=== PATIENT | female | born 1975 | race Caucasian/White ===

== ENCOUNTER 2016-09-10 17:36 | Emergency (ER) | payer MEDICARE ==
[2016-09-10 17:59] VITALS: O2SAT 100
--- NOTE | 2016-09-10 18:15 | ERPHSYRPT ---
- History of Present Illness Time Seen by Provider: 09/10/16 18:05 Source: patient Exam Limitations: no limitations Patient Subjective Stated Complaint: PT LOWER BACK PAIN THAT RADIATES DOWN LEFT LEG FOR LAST COUPLE DAYS, HAS BEEN LIFTING HEAVY OBJECTS, SHE STATES SHE HAS HX OF BACK PROBLEMS Triage Nursing Assessment: PT ALERT,CRYING, SKIN W/D RESP EASY, WALKED IN [facility] BACK. IS INCONT OF SMALL AMT OF URINE WHICH IS NEW THE LAST COUPLE HOURS, Physician History: The patient is a 40-year-old female with a history of chronic back problems with surgeries for a bulging disc complaining of low back pain on the left side with radiation down her left leg with movement since lifting an object last night. When she lifted the object, she had sharp pain in her back that caused her to urinate slightly. Today she has tried her medications for back pain that include ties and again, and Percocet. When she moves and has severe back pain she does urinate a little. She is able to urinate on her own when her back is hurting her. She has not had a bowel movement today. She has no numbness or tingling in her lower extremities. Timing/Duration: yesterday Method of Injury: bending, lifting Quality: aching Back Pain Location: lumbar spine, paraspinous muscles Back Pain Radiation: lower legs (left) Severity of Pain-Max: severe Severity of Pain-Current: severe Modifying Factors: Improves With: cold therapy, pain medication Associated Symptoms: problems urinating (pt states she urinates when she moves and the back pain is severe.), lower back pain, muscle spasms, No loss of bowel control, No numbness in legs/feet Previous symptoms: same symptoms as today Allergies/Adverse Reactions: ibuprofen [From Advil] Allergy (Verified 09/10/16 18:02) sulfamethoxazole [From Bactrim] Allergy (Verified 09/10/16 18:02) trimethoprim [From Bactrim] Allergy (Verified 09/10/16 18:02) Home Medications: Diazepam [Valium] 10 mg BID 09/10/16 [History] Hydrocodone Bit/Acetaminophen [[place] 5-325 Tablet] 1 ea QID 09/10/16 [History] Morphine Sulfate Cr 30 mg [Ms Contin 30 mg] 30 mg TID 09/10/16 [History] Tizanidine HCl 4 mg [Zanaflex 4 MG] 4 mg TID 09/10/16 [History] Topiramate 100 mg [Topamax 100 MG] 50 mg BID 09/10/16 [History] Hx Influenza Vaccination/Date Given: No Hx Pneumococcal Vaccination/Date Given: No Immunizations Up to Date: Yes - Review of Systems Constitutional: No Fever, No Chills Eyes: No Symptoms Ears, Nose, & Throat: No Symptoms Respiratory: No Cough, No Dyspnea Cardiac: No Chest Pain, No Edema, No Syncope Abdominal/Gastrointestinal: No Abdominal Pain, No Nausea, No Vomiting, No Diarrhea Genitourinary Symptoms: Incontinence Musculoskeletal: Back Pain, No Neck Pain Skin: No Rash Neurological: No Dizziness, No Focal Weakness, No Sensory Changes Psychological: No Symptoms Endocrine: No Symptoms Hematologic/Lymphatic: No Symptoms Immunological/Allergic: No Symptoms All Other Systems: Reviewed and Negative - Past Medical History Pertinent Past Medical History: Yes Neurological History: Seizures Other Medical History: CHRONIC BACK PAIN - Past Surgical History Past Surgical History: Yes Neuro Surgical History: Other Musculoskeletal: Orthopedic Surgery Female Surgical History: Hysterectomy, Section Other Surgical History: BACK ,BOTTLE ROCKET THROUGH LEFT EYE, EYE SURG,ARN,HAND - Social History Smoking Status: Current every day smoker Exposure to second hand smoke: Yes Drug Use: none Patient Lives Alone: No - Female History Hx Last Menstrual Period: HYSTER - Nursing Vital Signs Temperature: 97.2 F Temperature Source: Oral Pulse Rate: 82 Respiratory Rate: 16 Pain Intensity: 10 - Physical Exam General Appearance: moderate distress Eye Exam: PERRL/EOMI, eyes nml inspection Ears, Nose, Throat Exam: normal ENT inspection Neck Exam: normal inspection, non-tender, supple, full range of motion, No meningismus, No midline tenderness Respiratory Exam: normal breath sounds, lungs clear, No respiratory distress Cardiovascular Exam: regular rate/rhythm, normal heart sounds Gastrointestinal Exam: soft Pelvic Exam: not done Rectal Exam: normal exam, normal rectal tone, No decreased tone Back Exam: muscle spasm (left paraspinous) Extremity Exam: normal inspection, normal range of motion, No calf tenderness, No pedal edema Neurologic Exam: alert, oriented x 3, cooperative, stopper maker II-XII nml as tested, normal mood/affect, nml station & gait, sensation nml, No motor deficits Skin Exam: normal color, warm, dry, No rash SpO2 Interpretation: normal SpO2: 100 Oxygen Delivery: Room Air - Progress Progress: pain not gone completely Counseled pt/family regarding: diagnosis, need for follow-up - Departure Time of Disposition: 18:31 Departure Disposition: Home Clinical Impression: Sciatica Condition: Good Critical Care Time: No Additional Instructions: You have back pain with sciatica. You were given an injection of decadron 10 mg IM. Continue to take your home meds as directed that include narcotic pain meds and tizanidine. Follow up tomorrow with you PMD if your condition has not improved.
[2016-09-10] MEDS ORDERED: DECADRON 10MG INJ. IM ONE (18:27)
[2016-09-10] MEDS ORDERED: DECADRON 10MG INJ. ONE (18:33)
[2016-09-10 18:58] VITALS: BP 128/70; PULSE 72
== END 2016-09-10 18:57 | disposition home or self-care (01) ==
LOC: ED 17:36
DX: M54.32 Sciatica, left side (principal); X50.0XXA Overexertion from strenuous movement or load, initial encounter; M54.5 Low back pain; M79.662 Pain in left lower leg
CPT/HCPCS: 96372; 99284; J1100

== ENCOUNTER 2017-01-01 14:43 | Emergency (ER) | payer MEDICARE ==
--- NOTE | 2017-01-01 15:06 | ERPHSYRPT ---
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 She was stung on right foot yesterday by a honey bee. It is swollen, itching, red. Painful. She had a prior sore on the ankle which has been draining green pus. No fever. Tetanus up to date. Not . She can not take septra or NSAIDS. Occurred: yesterday Lower Extremities Pain: foot: left Allergies/Adverse Reactions: ibuprofen [From Advil] Allergy (Verified 09/10/16 18:02) sulfamethoxazole [From Bactrim] Allergy (Verified 09/10/16 18:02) trimethoprim [From Bactrim] Allergy (Verified 09/10/16 18:02) Home Medications: Diazepam [Valium] 10 mg BID 09/10/16 [History] Hydrocodone Bit/Acetaminophen [[place] 5-325 Tablet] 1 ea QID 09/10/16 [History] Morphine Sulfate Cr 30 mg [Ms Contin 30 mg] 30 mg TID 09/10/16 [History] Tizanidine HCl 4 mg [Zanaflex 4 MG] 4 mg TID 09/10/16 [History] Topiramate 100 mg [Topamax 100 MG] 50 mg BID 09/10/16 [History] Hx Influenza Vaccination/Date Given: No Hx Pneumococcal Vaccination/Date Given: No - Review of Systems Constitutional: No Fever, No Chills Respiratory: No Dyspnea, No Wheezing Abdominal/Gastrointestinal: No Nausea, No Vomiting, No Diarrhea Musculoskeletal: Injury (bee sting right foot) Skin: Skin Lesions (sore on left foot/ankle) Neurological: No Focal Weakness, No Parasthesia All Other Systems: Reviewed and Negative - Past Medical History Pertinent Past Medical History: Yes Neurological History: Seizures Other Medical History: CHRONIC BACK PAIN - Past Surgical History Past Surgical History: Yes Neuro Surgical History: Other Musculoskeletal: Orthopedic Surgery Female Surgical History: Hysterectomy, Section Other Surgical History: BACK ,BOTTLE ROCKET THROUGH LEFT EYE, EYE SURG,ARN,HAND - Social History Smoking Status: Current every day smoker Exposure to second hand smoke: Yes Drug Use: none Patient Lives Alone: No - Physical Exam General Appearance: alert Eyes, Ears, Nose, Throat Exam: moist mucous membranes Neck Exam: supple Cardiovascular/Respiratory Exam: regular rate/rhythm Neuro/Tendon Exam: normal sensation, normal motor functions Mental Status Exam: alert, oriented x 3, cooperative Skin Exam: warm, dry Comments: right foot swollen with some redness. There is no bee stinger present. There is a medial proximal sore without drng. Pulses intact. ROM intact. - Course Nursing assessment & vital signs reviewed: Yes - Progress Progress Note: 01/01/17 15:04 She is driving. Has used benadryl at home. Allergic to NSAIDS. This is not anaphylaxis but local reaction to bee. She has a pre-existing sore. Rx keflex for that. Rx atarax instead of benadryl. Continue baking soda compresses. Counseled pt/family regarding: diagnosis, need for follow-up - Departure Time of Disposition: 15:05 Departure Disposition: Home Clinical Impression: bee sting right foot Condition: Stable Critical Care Time: No Referrals: TOMY PARKER [Primary Care Provider] - Instructions: Insect Bites and Stings Additional Instructions: Rx keflex. Rx atarax instead of benadryl. No driving while taking atarax. Elevate foot. Follow up with Dr Parker for any worsening. Prescriptions: Hydroxyzine HCl 1 tab PO Q6H PRN PRN #20 tablet PRN Reason: rash,rest Cephalexin Mh 500 mg [Keflex 500 mg] 1 cap PO QID #40 capsule
[2017-01-01 15:12] VITALS: BP 122/60; PULSE 76; O2SAT 100
== END 2017-01-01 15:22 | disposition home or self-care (01) ==
LOC: ED 14:43
DX: T63.441A Toxic effect of venom of bees, accidental (unintentional), initial encounter (principal)
CPT/HCPCS: 99283

== ENCOUNTER 2017-09-06 13:26 | Emergency (ER) | payer MEDICARE ==
[2017-09-06] MEDS ORDERED: DECADRON 10MG INJ. IM ONE (14:40)
[2017-09-06] MEDS ORDERED: DECADRON 10MG INJ. ONE (14:44)
--- NOTE | 2017-09-06 14:44 | ERPHSYRPT ---
- History of Present Illness Time Seen by Provider: 09/06/17 13:44 Source: patient Patient Subjective Stated Complaint: pt reports productive cough-recent illness- unsure of fever-states that she coughs up clear to white sputum at times-states she just can't kick this cold Triage Nursing Assessment: pt pink warm and [id number] nonlabored-cough noted throughout triage-wheezes noted throughout-pt able to speak in complete sentences Physician History: CC: cough Hx: 41 y/o patient with cough, congestion. Some post tussive emesis last night. No fever or chills. Kids have URI. She is a smoker. Not . Timing/Duration: yesterday (worse) Allergies/Adverse Reactions: ibuprofen [From Advil] Allergy (Verified 09/06/17 13:39) NSAIDS (Non-Steroidal Anti-Inflamma Allergy (Verified 09/06/17 13:39) sulfamethoxazole [From Bactrim] Allergy (Verified 09/06/17 13:39) trimethoprim [From Bactrim] Allergy (Verified 09/06/17 13:39) Home Medications: Topiramate 100 mg [Topamax 100 MG] 50 mg BID 09/10/16 [History] Carisoprodol 350 mg [Soma 350 mg] 350 mg PO TID 01/01/17 [History] Hydrocodone Bit/Acetaminophen [[place] 7.5-325 Tablet] 1 each PO UD 09/06/17 [ History] Hx Tetanus, Diphtheria Vaccination/Date Given: Yes Hx Influenza Vaccination/Date Given: No Hx Pneumococcal Vaccination/Date Given: No Immunizations Up to Date: Yes - Review of Systems Constitutional: Fatigue, Malaise Eyes: No Symptoms Ears, Nose, & Throat: Nose Congestion Respiratory: Cough Cardiac: No Chest Pain Abdominal/Gastrointestinal: Vomiting (post tussive), No Abdominal Pain Skin: No Rash All Other Systems: Reviewed and Negative - Past Medical History Pertinent Past Medical History: Yes Neurological History: Seizures Other Medical History: CHRONIC BACK PAIN - Past Surgical History Past Surgical History: Yes Neuro Surgical History: Other Musculoskeletal: Orthopedic Surgery Female Surgical History: Hysterectomy, Section Other Surgical History: BACK ,BOTTLE ROCKET THROUGH LEFT EYE, EYE SURG,ARN,HAND - Social History Smoking Status: Current every day smoker How long have you smoked: yrs Exposure to second hand smoke: Yes Drug Use: none Patient Lives Alone: No - Female History Hx Last Menstrual Period: hysterectomy Hx Now: No - Nursing Vital Signs Nursing Vital Signs: Initial Vital Signs Respiratory Rate 18 09/06/17 13:41 O2 Sat by Pulse Oximetry 97 09/06/17 13:41 Pain Scale Pain Intensity 6 - Physical Exam General Appearance: alert Eye Exam: PERRL/EOMI Ears, Nose, Throat Exam: moist mucous membranes Neck Exam: normal inspection, non-tender, supple Respiratory Exam: rhonchi Cardiovascular Exam: regular rate/rhythm Neurologic Exam: alert, oriented x 3, cooperative, sensation nml, No motor deficits Skin Exam: warm, dry, No rash SpO2 Interpretation: normal SpO2: 97 Oxygen Delivery: Room Air - Course Nursing assessment & vital signs reviewed: Yes Ordered Tests: Medication Summary Discontinued Medications Generic Name Dose Route Start Last Admin Trade Name Freq PRN Reason Stop Dose Admin Dexamethasone Sodium Phosphate 10 mg 09/06/17 14:40 Decadron 10mg Inj. IM 09/06/17 14:41 STAT ONE - Progress Progress Note: 09/06/17 14:42 Advised smoking cessation. IM decadron given. Aerochamber spacer given. Rx alb, doxy. Counseled pt/family regarding: diagnosis, need for follow-up, smoking cessation - Departure Time of Disposition: 14:42 Departure Disposition: Home Clinical Impression: Acute asthmatic bronchitis Condition: Stable Critical Care Time: No Referrals: TOMY MOE [Primary Care Provider] - Instructions: Cough, Adult (DC), Quitting Smoking Additional Instructions: UPPER RESPIRATORY INFECTIONS 1. The signs and symptoms of a cold may last up to 10 days. These illnesses are due to viruses which are not treatable with antibiotics. 2. The following suggestions can aid in recovery and to minimize symptoms: A. Increase fluid intake. B. Acetaminophen or Ibuprofen as directed. C. Avoid smoking environments as this will increase the risk of developing pneumonia. D. For children, may use a cool mist vaporizer in the child's room. 3. Contact your Family Physician if you note: A. Persisten fever >103 for more than 3 days B. Breathing difficulty C. Productive cough of yellow/green sputum D. Illness greater than 7 days E. Persistent vomiting F. Stiff neck Rx doxycycline. Rx albuterol. Prescriptions: Albuterol Sulfate [Albuterol Sulfate Hfa] 2 puff IH Q4-6HPRN PRN #1 [id number] PRN Reason: cough or wheeze Doxycycline Hyclate 100 mg [Vibramycin 100 MG] 100 mg PO BID #20 tab
[2017-09-06 15:12] VITALS: BP 116/64; PULSE 78; O2SAT 98
== END 2017-09-06 15:12 | disposition home or self-care (01) ==
LOC: ED 13:26
DX: J45.909 Unspecified asthma, uncomplicated (principal)
CPT/HCPCS: 96372; 99282; J1100